=== PATIENT | female | born 1970 | race Caucasian/White ===

== ENCOUNTER 2018-07-14 12:46 | Outpatient (CLI) | payer BC ==
--- NOTE | 2018-07-14 16:21 | ULT ---
BILATERAL BREAST ULTRASOUND 07/14/18 HISTORY: Palpable abnormality right breast. Round masses seen in the left breast on mammogram. FINDINGS: Corresponding to the palpable abnormality of the right breast is a simple cyst. This is increased in size from the comparison examination. There is simple cysts in the left breast at 9 o'clock correspon ding to the mammographic findings. IMPRESSION: BIRADS 2: Benign Finding(s) Routine annual screening mammography (for women over age 40). POS: OFF
== END 2018-07-14 12:47 | disposition home or self-care (01) ==
LOC: BICMAMMO 12:46
PROVIDERS: ATTEND Family Medicine
DX: N63.0 Unspecified lump in unspecified breast (principal)
CPT/HCPCS: 77066; G0279

== ENCOUNTER 2021-01-01 08:53 | Outpatient (CLI) | payer BC | END 2021-01-01 08:54 | disposition home or self-care (01) | LOC: BICMAMMO 08:53 | PROVIDERS: ATTEND Internal Medicine Rheumatology | DX: Z12.31 Encounter for screening mammogram for malignant neoplasm of breast (principal); M81.0 Age-related osteoporosis without current pathological fracture; R92.0 Mammographic microcalcification found on diagnostic imaging of breast | CPT/HCPCS: 77063; 77067; 77080 ==

== ENCOUNTER 2021-01-05 10:08 | Outpatient (CLI) | payer BC, OTHER | END 2021-01-05 10:09 | disposition home or self-care (01) | LOC: BICMAMMO 10:08 → BICMRI 10:09 | PROVIDERS: ATTEND Family Medicine | DX: R92.8 Other abnormal and inconclusive findings on diagnostic imaging of breast (principal); R92.1 Mammographic calcification found on diagnostic imaging of breast | CPT/HCPCS: A9577; C8908; G0279 ==

== ENCOUNTER 2022-02-03 09:32 | Outpatient (CLI) | payer BC ==
[2022-02-03 16:59] LABS: SARS-CoV-2 PCR by NAA Not Detected (NotDetected)
== END 2022-02-03 09:33 | disposition home or self-care (01) ==
LOC: LABBT 09:32
PROVIDERS: ATTEND Plastic Surgery
DX: Z20.822 Contact with and (suspected) exposure to COVID-19 (principal)
CPT/HCPCS: U0003; U0005

== ENCOUNTER 2022-02-05 10:01 | Day surgery (SDC) | payer BC ==
[2022-02-04 09:17] VITALS: BMI 26.9
[2022-02-05] MEDS ORDERED: fentaNYL Citrate/PF 100 MCG/2 ML SYRINGE ONE ×2 (10:30→14:53)
[2022-02-05] MEDS ORDERED: Dexmedetomidine 200 MCG/2 ML VIAL ONE (10:30)
[2022-02-05] MEDS ORDERED: Meperidine HCl/PF 25 MG/ML VIAL ONE (10:30)
[2022-02-05] MEDS ORDERED: SUGAMMADEX SODIUM 200 MG/2 ML VIAL ONE (10:30)
[2022-02-05] MEDS ORDERED: Famotidine/PF 20 mg/2ml Vial ONE ×2 (10:30→11:43)
[2022-02-05] MEDS ORDERED: Heparin 5,000 UNITS/ML VIAL ONE (10:39)
[2022-02-05] MEDS ORDERED: Lidocaine 1% MPF 2 ML VIAL ONE (10:39)
[2022-02-05] MEDS ORDERED: EPINEPHrine 1 MG/ML AMP ONE (10:45)
[2022-02-05] MEDS ORDERED: Bupivacaine 0.25% 10 ML VIAL ONE (10:45)
[2022-02-05] MEDS ORDERED: ePHEDrine 50 MG/ML VIAL ONE (11:43)
[2022-02-05] MEDS ORDERED: Midazolam HCl 2 mg/2 ml Vial ONE (11:43)
[2022-02-05] MEDS ORDERED: Dexamethasone 20 MG/5 ML VIAL ONE ×2 (11:43)
[2022-02-05] MEDS ORDERED: Ketorolac Tromethamine 30 MG/ML VIAL ONE (11:43)
[2022-02-05] MEDS ORDERED: PHENYLEPHRINE-NS 100 MCG/ML 10 ML SYRINGE ONE (11:43)
[2022-02-05] MEDS ORDERED: Lidocaine 1% PF 5 ML VIAL ONE (11:43)
[2022-02-05] MEDS ORDERED: Ondansetron PF 4 MG/2 ML Vial ONE (11:43)
[2022-02-05] MEDS ORDERED: PROPOFOL 200 MG/20 ML VIAL ONE (11:43)
[2022-02-05] MEDS ORDERED: Metoclopramide HCl 10 MG/2 ML VIAL ONE (11:43)
[2022-02-05] MEDS ORDERED: Neomycin-Polymyxin 1 ML AMP ONE (12:30)
[2022-02-05] MEDS ORDERED: traMADol HCl 50 MG TAB ONE (15:53)
== END 2022-02-05 16:32 | disposition home or self-care (01) ==
LOC: SDC 10:01
PROVIDERS: ATTEND Plastic Surgery
PROC: 0HPT0JZ Removal of Synthetic Substitute from Right Breast, Open Approach (ICD-10-PCS; principal; 2022-02-05)
PROC: 0H0V07Z Alteration of Bilateral Breast with Autologous Tissue Substitute, Open Approach (ICD-10-PCS; principal; 2022-02-05)
PROC: 0HPU0JZ Removal of Synthetic Substitute from Left Breast, Open Approach (ICD-10-PCS; principal; 2022-02-05)
DX: N65.0 Deformity of reconstructed breast (principal); E03.9 Hypothyroidism, unspecified; Z85.3 Personal history of malignant neoplasm of breast; Z86.16 Personal history of COVID-19; Z79.890 Hormone replacement therapy; Z79.899 Other long term (current) drug therapy
CPT/HCPCS: 88305; J0171; J1100; J1644; J1885; J2175; J2250; J2405; J2704; J2765; J3370; J3490; S0020; S0028

== ENCOUNTER 2022-02-12 12:18 | Day surgery (SDC) | payer BC ==
[2022-02-12 13:55] LABS: SARS-CoV-2 NAA Rapid Test Not Detected (NotDetected)
[2022-02-12] MEDS ORDERED: Gabapentin 300 MG CAP ONE (14:10)
[2022-02-12] MEDS ORDERED: Sodium Chloride 0.9% 100 ML ONE (14:10)
[2022-02-12] MEDS ORDERED: CEFAZOLIN 2 GM VIAL ONE (14:10)
[2022-02-12 14:34] LABS: #Basophils 0.1 thou/uL (0.0-0.2); #Eosinphils 0.6 thou/uL (0.0-0.7); #Lymphocytes 2.6 thou/uL (1.20-3.40); #Monocytes 0.5 thou/uL (0.11-0.59); %Basophils 0.8 % (0.0-1.0); %Eosinophils 8.3 % (0.0-10.0); %Lymphocytes 33.5 % (21.0-51.0); %Monocytes 6.7 % (0.0-10.0); %Neutrophils 50.7 % (42.0-75.0); Hemoglobin 13.2 g/dL (12.0-16.0); Mean Corpuscular HGB CONC 33.3 g/dL (32.0-36.0); Mean Corpuscular Hemoglobin 29.4 pg (27.0-31.0); Mean Corpuscular Volume 88.5 fL (78.0-98.0); Mean Platelet Volume 7.4 fL (7.4-10.4); Platelet Count 323 thou/uL (130-400); RBC Distribution Width 11.9 % (11.5-14.5); Red Blood Cell (RBC) Count 4.48 mill/uL (4.20-5.40); White Blood Cell (WBC) Count 7.8 thou/uL (4.8-10.8)
[2022-02-12 14:42] LABS: INR-International Normal Ratio 0.9
[2022-02-12 14:45] LABS: PTT 22.1 sec (22.9-36.1)
[2022-02-12 14:50] LABS: Anion Gap 13 mmol/L (10-20); BUN (Urea Nitrogen) 16 mg/dL (9.8-20.1); Calc. Creatinine Clearance 0 mL/min (70-130); Calcium 9.2 mg/dL (7.8-10.44); Carbon Dioxide 23 mmol/L (22-29); Chloride 106 mmol/L (98-107); Glucose 81 mg/dL (70-105); Potassium 4.1 mmol/L (3.5-5.1); Sodium 138 mmol/L (136-145)
[2022-02-12] MEDS ORDERED: fentaNYL Citrate/PF 100 MCG/2 ML SYRINGE ONE ×3 (17:01→19:08)
[2022-02-12] MEDS ORDERED: Lidocaine 1% (PF) 30 ML VIAL ONE (17:24)
[2022-02-12] MEDS ORDERED: Bupivacaine 0.25% HCL 30 ML VIAL ONE (17:24)
[2022-02-12] MEDS ORDERED: EPINEPHrine 1 MG/ML AMP ONE (17:24)
[2022-02-12] MEDS ORDERED: Neomycin-Polymyxin 1 ML AMP ONE (17:24)
[2022-02-12] MEDS ORDERED: Lidocaine 1% PF 5 ML VIAL ONE (17:38)
[2022-02-12] MEDS ORDERED: ePHEDrine 50 MG/ML VIAL ONE (17:38)
[2022-02-12] MEDS ORDERED: Ondansetron PF 4 MG/2 ML Vial ONE (17:38)
[2022-02-12] MEDS ORDERED: Dexamethasone 20 MG/5 ML VIAL ONE (17:38)
[2022-02-12] MEDS ORDERED: PROPOFOL 200 MG/20 ML VIAL ONE (17:38)
[2022-02-12] MEDS ORDERED: PHENYLEPHRINE-NS 100 MCG/ML 10 ML SYRINGE ONE (17:38)
[2022-02-12] MEDS ORDERED: HYDROcodone/Acetaminophen 5/325 mg Tablet ONE (19:20)
== END 2022-02-12 19:46 | disposition home or self-care (01) ==
LOC: SDC 12:18
PROVIDERS: ATTEND Plastic Surgery
PROC: 0H9V00Z Drainage of Bilateral Breast with Drainage Device, Open Approach (ICD-10-PCS; principal; 2022-02-12)
DX: M96.843 Postprocedural seroma of a musculoskeletal structure following other procedure (principal); Z20.822 Contact with and (suspected) exposure to COVID-19
CPT/HCPCS: 36415; 80048; 85025; 85610; 85730; J0171; J1100; J2001; J2405; J2704; J3370; J3490; S0020; U0002

== ENCOUNTER 2024-04-09 16:25 | Outpatient (CLI) | payer OTHER | END 2024-04-09 16:26 | disposition home or self-care (01) | LOC: SCSRAD 16:25 | PROVIDERS: ATTEND Family Medicine | DX: R07.81 Pleurodynia (principal); R22.2 Localized swelling, mass and lump, trunk ==